=== PATIENT | male | born 1995 | race Caucasian/White ===

== ENCOUNTER 2019-12-02 21:45 | Emergency (ER) | payer BC, OTHER ==
[2019-12-02] MEDS ORDERED: Ondansetron 4 MG/2 ML SDV IVPUSH ONE (23:05)
[2019-12-02] MEDS ORDERED: Sodium Chloride 0.9% 1,000 ML IV ONE (23:05)
[2019-12-03 00:41] LABS: BLOOD UREA NITROGEN,BUN 12 mg/dL (7.0-18.0); CARBON DIOXIDE,CO2 26.4 mmol/L (21.0-32.0); CHLORIDE,CL 102 mmol/L (98-107); GLUCOSE RANDOM 102 mg/dL (74-106); LIPASE 101 U/L (73-393); POTASSIUM,K 4.2 mmol/L (3.5-5.1); SODIUM,NA 138 mmol/L (136-148)
[2019-12-03] MEDS ORDERED: Iopamidol 755 Mg/ML 100 ML Bottle IVPUSH STA (01:17)
--- NOTE | 2019-12-03 02:09 | CT ---
HISTORY: Abdominal pain. Vomiting and diarrhea. TECHNIQUE: CT abdomen pelvis with IV contrast. COMPARISON: None. FINDINGS: Abdomen: No liver lesions. No bile duct dilation. No pancreatic mass or pancreatic duct dilation. No spleen lesions. No adrenal nodules. Kidneys enhance symmetrically. No renal mass. No hydronephrosis. No dilated bowel. Appendix is normal. No free fluid. No lymphadenopathy. Abdominal aorta is normal caliber. Pelvis: No lymphadenopathy. Musculoskeletal: Unremarkable. Lower chest: Unremarkable. IMPRESSION: No acute abnormality in the abdomen and pelvis. Please note that all CT scans at this facility use dose modulation, iterative reconstruction, and/or weight-based dosing when appropriate to reduce radiation dose to as low as reasonably achievable. Dictated by Stiven Cano MD @ Dec 03 2019 2:01AM Signed by Dr. Stiven Cano @ Dec 03 2019 2:08AM
--- NOTE | 2019-12-03 02:17 | EDM.PDOC ---
ED [facility] GENERAL MEDICAL PROBLEM - General Chief Complaint: Gastrointestinal Problem Stated Complaint: STOMACH ISSUES Time Seen by Provider: 12/02/19 22:59 - History of Present Illness INITIAL COMMENTS - FREE TEXT/NARRATIVE: HPI 24-year-old male presents for evaluation of ~3 days of frequent (up to 6X/day) loose watery stools, no blood in stool, no fevers or chills, now with poorly characterized epigastric discomfort. No dysuria or urinary frequency. No chest pain or shortness breath. No drinking unpurified water, no recent travel. No recent antibiotics. Triage note: Patient presents to the ed with c/o abdominal fullness and diarrhea x 3 days. M/S/F/SocHx notable for: please see HPI; remainder reviewed with patient and in chart. ROS: Negative constitutional, eye, cardiovascular, pulmonary, GI, , MSK, skin , neurologic, psychiatric, endocrine unless noted in the HPI. Exam HR 96, RR 18, BP 147/85, T 37.8C, SaO2 97% on room air. Gen: Pleasant, non-toxic appearing, resting comfortably. HEENT: NC, AT, PEERL, EOMI, neck supple with full range of movement. Resp: Clear to auscultation bilaterally, normal work of breathing, no accessory muscle usage. Card: Regular rate and rhythm with no murmurs, rubs, or gallops, extremities warm and well perfused. GI: Non-tender to palpation throughout all quadrants, no focal tenderness at McBurney's point, negative Diaz's sign, non-distended, no rebound or guarding. : No suprapubic tenderness to palpation. MSK: No visible deformities, strength and tone without visually appreciable deficit. Skin: Normal color with no visible lesions. Neuro: alert and oriented 3, no facial asymmetry, vision and hearing WNL. Psych: Mood and affect appropriate. Labs / Imaging (pertinent): WBC 6.96, HB 16.5, sodium 130, potassium 4.2, AST 22, ALT 39, total bilirubin 0.4, alkaline phosphatase 82, lipase 11. CT abdomen/pelvis: no acute abnormality in the abdomen and pelvis. MDM Previous chart, nursing note, and vitals reviewed. A: 24-year-old male presents for evaluation of ~3 days of frequent (up to 6X/day ) loose watery stools, no blood in stool, no fevers or chills, now with poorly characterized epigastric discomfort. DDx: viral enteritis, viral gastroenteritis, bacterial gastroenteritis, food poisoning, C. Difficile, dehydration, electrolyte abnormalities, septicemia/ bacteremia, DKA, acute appendicitis, inflammatory (Crohns vs ulcerative colitis ). Evaluation: no clinically significant acute intrabdominal abnormalities appreciated on imaging, laboratory studies, history, or exam. Suspect a mild enteritis basement history (an absence of collaborating findings on imaging). Patient instructed to use a trial of dental and follow up with primary care physician for repeat evaluation. No genitourinary symptoms. No intrathoracic symptoms. Impression: abdominal pain, diarrhea. - Related Data Allergies Allergy/AdvReac Type Severity Reaction Status Date / Time amoxicillin Allergy Hives Verified 12/02/19 22:19 Home Meds: Home Meds Calcium Carbonate [Tums] 1 tab.chew PO ASDIRECTED PRN 09/07/16 [History] Dicyclomine [Bentyl] 20 mg PO TID PRN #10 tablet 12/03/19 [Rx] Past Medical History HEENT History: Reports: Allergic Rhinitis Cardiovascular History: Reports: None Respiratory History: Reports: None Gastrointestinal History: Reports: GERD Other Gastrointestinal History: heartburn Genitourinary History: Reports: None Musculoskeletal History: Reports: Fracture Other Musculoskeletal History: hx fx leg Neurological History: Reports: None Psychiatric History: Reports: None Endocrine/Metabolic History: Reports: Obesity/BMI 30+ Hematologic History: Reports: None Immunologic History: Reports: None Oncologic (Cancer) History: Reports: None Dermatologic History: Reports: None - Infectious Disease History Infectious Disease History: Reports: Chicken Pox - Past Surgical History Head Surgeries/Procedures: Reports: None Social & Family History - Family History Family Medical History: Noncontributory - Tobacco Use Years of Tobacco use: 2 - Recreational Drug Use Recreational Drug Use: No ED ROS GENERAL - Review of Systems Review Of Systems: See Below ED EXAM, GENERAL - Physical Exam Exam: See Below Course - Vital Signs Last Recorded V/S: Last Vital Signs Temp 37.8 C 12/02/19 22:20 Pulse 96 12/02/19 22:20 Resp 18 12/02/19 22:20 BP 147/85 H 12/02/19 22:20 Pulse Ox 97 12/02/19 22:20 - Orders/Labs/Meds Labs: Laboratory Tests 12/02/19 12/02/19 Range/Units 23:55 23:55 WBC 6.96 (4.0-11.0) K/uL RBC 5.39 (4.50-5.90) M/uL Hgb 16.5 (13.0-17.0) g/dL Hct 46.6 (38.0-50.0) % MCV 86.5 (80.0-98.0) fL MCH 30.6 (27.0-32.0) pg MCHC 35.4 (31.0-37.0) g/dL RDW Std Deviation 36.9 (28.0-62.0) fl RDW Coeff of [place] 12 (11.0-15.0) % Plt Count 287 (150-400) K/uL MPV 10.30 (7.40-12.00) fL Neut % (Auto) 72.3 (48.0-80.0) % Lymph % (Auto) 17.2 (16.0-40.0) % [place] % (Auto) 8.6 (0.0-15.0) % Eos % (Auto) 1.6 (0.0-7.0) % Baso % (Auto) 0.3 (0.0-1.5) % Neut # (Auto) 5.0 (1.4-5.7) K/uL Lymph # (Auto) 1.2 (0.6-2.4) K/uL [place] # (Auto) 0.6 (0.0-0.8) K/uL Eos # (Auto) 0.1 (0.0-0.7) K/uL Baso # (Auto) 0.0 (0.0-0.1) K/uL Nucleated RBC % 0.0 /100WBC Nucleated RBCs # 0 K/uL Sodium 138 (136-148) mmol/L Potassium 4.2 (3.5-5.1) mmol/L Chloride 102 (98-107) mmol/L Carbon Dioxide 26.4 (21.0-32.0) mmol/L BUN 12 (7.0-18.0) mg/dL Creatinine 0.9 (0.8-1.3) mg/dL Est Cr Clr Drug Dosing TNP Estimated GFR (MDRD) > 60.0 ml/min Glucose 102 (74-106) mg/dL Calcium 9.5 (8.5-10.1) mg/dL Total Bilirubin 0.4 (0.2-1.0) mg/dL AST 22 (15-37) IU/L ALT 39 (14-63) IU/L Alkaline Phosphatase 82 (46-116) U/L Total Protein 8.4 H (6.4-8.2) g/dL Albumin 4.5 (3.4-5.0) g/dL Globulin 3.9 (2.6-4.0) g/dL Albumin/Globulin Ratio 1.2 (0.9-1.6) Lipase 101 (73-393) U/L Meds: Medications Discontinued Medications Generic Name Dose Route Start Last Admin Trade Name Freq PRN Reason Stop Dose Admin Sodium Chloride 1,000 mls @ 1,000 mls/hr 12/02/19 23:05 12/02/19 23:56 Normal Saline IV 12/03/19 00:04 1,000 mls/hr .Bolus ONE Administration Iopamidol 100 ml 12/03/19 01:17 12/03/19 01:32 Isovue-370 (76%) IVPUSH 12/03/19 01:18 100 ml ONETIME STA Administration Ondansetron HCl 4 mg 12/02/19 23:05 12/02/19 23:56 Zofran IVPUSH 12/02/19 23:06 4 mg ONETIME ONE Administration Departure - Departure Time of Disposition: 02:16 Disposition: Home, Self-Care 01 Clinical Impression: Gastroenteritis - Discharge Information Prescriptions: Dicyclomine [Bentyl] 20 mg PO TID PRN #10 tablet PRN Reason: Pain Referrals: PCP,None [Primary Care Provider] - Sepsis Event Note - Evaluation Sepsis Screening Result: No Definite Risk - Focused Exam Vital Signs: Vital Signs Temp Pulse Resp BP Pulse Ox 12/02/19 22:20 37.8 C 96 18 147/85 H 97 Date Exam was Performed: 12/03/19 Time Exam was Performed: 02:15
[2019-12-03 02:41] VITALS: BP 122/73; PULSE 75
== END 2019-12-03 02:40 | disposition home or self-care (01) ==
LOC: MW.ED 21:45
DX: K52.9 Noninfective gastroenteritis and colitis, unspecified (principal); F17.200 Nicotine dependence, unspecified, uncomplicated; Z88.0 Allergy status to penicillin
CPT/HCPCS: 36415; 74177; 80053; 83690; 85025; 96361; 96374; 99284; J2405; J7030; Q9967; 99283

== ENCOUNTER 2020-03-24 01:04 | Emergency (ER) | payer BC ==
[2020-03-24] MEDS ORDERED: Lidocaine 1% with EPINEPHrine 1:100,000 20 ML MDV INJECT ONE (01:23)
--- NOTE | 2020-03-24 01:46 | EDM.PDOC ---
ED HPI GENERAL MEDICAL PROBLEM - General Chief Complaint: Skin Complaint Stated Complaint: CYST ON LOWER BACK Time Seen by Provider: 03/24/20 01:11 Source of Information: Reports: Patient History Limitations: Reports: No Limitations - History of Present Illness INITIAL COMMENTS - FREE TEXT/NARRATIVE: 24-year-old male presents to the emergency room with a chief complaint of swelling and pain to the lower patient has pressure at his buttocks crease. Patient states the last day he has been having pain and pressure. States he has had a fever for 1 day also. Onset: Today Duration: Day(s): (2.) Worsens with: Reports: None Context: Reports: Activity Associated Symptoms: Reports: Fever/Chills buttocks Pain Score (Numeric/FACES): 10 - Related Data Allergies Allergy/AdvReac Type Severity Reaction Status Date / Time amoxicillin Allergy Hives Verified 03/24/20 01:20 Home Meds: Home Meds Calcium Carbonate [Tums] 1 tab.chew PO ASDIRECTED PRN 09/07/16 [History] Dicyclomine [Bentyl] 20 mg PO TID PRN #10 tablet 12/03/19 [Rx] Ibuprofen [Motrin] 600 mg PO Q6H PRN #30 tab 03/24/20 [Rx] cephALEXin [Keflex] 500 mg PO Q6HR #40 capsule 03/24/20 [Rx] Past Medical History HEENT History: Reports: Allergic Rhinitis Cardiovascular History: Reports: None Respiratory History: Reports: None Gastrointestinal History: Reports: GERD Other Gastrointestinal History: heartburn Genitourinary History: Reports: None Musculoskeletal History: Reports: Fracture Other Musculoskeletal History: hx fx leg Neurological History: Reports: None Psychiatric History: Reports: None Endocrine/Metabolic History: Reports: Obesity/BMI 30+ Hematologic History: Reports: None Immunologic History: Reports: None Oncologic (Cancer) History: Reports: None Dermatologic History: Reports: None - Infectious Disease History Infectious Disease History: Reports: Chicken Pox - Past Surgical History Head Surgeries/Procedures: Reports: None Social & Family History - Family History Family Medical History: Noncontributory - Tobacco Use Smoking Status *Q: Current Every Day Smoker Years of Tobacco use: 2 Packs/Tins Daily: 0.1 ED ROS GENERAL - Review of Systems Review Of Systems: See Below Constitutional: Reports: No Symptoms HEENT: Reports: No Symptoms Respiratory: Reports: No Symptoms Cardiovascular: Reports: No Symptoms Endocrine: Reports: No Symptoms GI/Abdominal: Reports: No Symptoms : Reports: No Symptoms Musculoskeletal: Reports: No Symptoms Skin: Reports: Lumps (Swelling to the area in his buttocks) Neurological: Reports: No Symptoms Psychiatric: Reports: No Symptoms Hematologic/Lymphatic: Reports: No Symptoms Immunologic: Reports: No Symptoms ED EXAM, SKIN/RASH Exam: See Below Exam Limited By: No Limitations General Appearance: Alert, WD/WN, Mild Distress Eye Exam: Bilateral Eye: Normal Fundi, Normal Inspection Ears: Normal External Exam, Normal Canal Nose: Normal Inspection, Normal Mucosa Throat/Mouth: Normal Inspection, Normal Lips Head: Atraumatic, Normocephalic Neck: Normal Inspection, Supple Respiratory/Chest: No Respiratory Distress Cardiovascular: Normal Peripheral Pulses, Regular Rate, Rhythm GI/Abdominal: Normal Bowel Sounds, Soft, Non-Tender (Male) Exam: No Hernia, Normal Inspection, Normal Prostate Back Exam: Normal Inspection, Full Range of Motion Extremities: Normal Inspection, Normal Range of Motion Neurological: Alert, Oriented, CN II-XII Intact Psychiatric: Normal Affect, Normal Mood Skin: Warm, Increased Warmth, Other (Patient has a pilonidal abscess to the upper buttocks/very tender and indurated) Location, Skin: Other (HE has a pilonidal cyst. Approximately 4 cm with a long and very tender) Associated features: Warmth, Tenderness, Swelling, Induration, Inflammation Lymphatic: No Adenopathy ED SKIN PROCEDURES - Additional/Other Procedure(s) Other (Free Text) Procedure(s): Patient had a pilonidal abscess Area cleaned with Betadine. Lidocaine 1% with epi x10 cc anesthesia I then aspirated approximately 8 cc of purulent foul-smelling pus. A 2 cm incision was performed with opening with a blunt forcep. 1 inch packing was applied to the area. Patient will be placed on antibiotics and instructed to follow-up with surgery placed on referral list. Course - Vital Signs Text/Narrative:: He had an I&D performed of his pilonidal cyst. Good results The patient has tolerated the procedure well Last Recorded V/S: Last Vital Signs Temp 97.2 F 03/24/20 01:15 Pulse 88 03/24/20 01:15 Resp 16 03/24/20 01:15 BP 147/83 H 03/24/20 01:15 Pulse Ox 96 03/24/20 01:15 - Orders/Labs/Meds Meds: Medications Discontinued Medications Generic Name Dose Route Start Last Admin Trade Name Tien PRN Reason Stop Dose Admin Cephalexin 500 mg 03/24/20 01:53 Keflex PO 03/24/20 01:54 ONETIME ONE Lidocaine/Epinephrine 20 ml 03/24/20 01:23 03/24/20 01:50 Xylocaine 1% With Epinephrine 1:100,000 INJECT 03/24/20 01:24 20 ml ONETIME ONE Administration Departure - Departure Time of Disposition: 01:59 Disposition: Home, Self-Care 01 Condition: Good Clinical Impression: Abscess, Pilonidal cyst with abscess - Discharge Information Prescriptions: cephALEXin [Keflex] 500 mg PO Q6HR #40 capsule Ibuprofen [Motrin] 600 mg PO Q6H PRN #30 tab PRN Reason: Pain (Moderate 4-6) Instructions: Pilonidal Cyst Drainage, Skin Abscess, [id number] Referrals: PCP,None [Primary Care Provider] - Forms: ED Department Discharge Additional Instructions: . Follow-up with the surgery clinic II. Take medication as prescribed. Sepsis Event Note - Evaluation Sepsis Screening Result: No Definite Risk - Focused Exam Vital Signs: Vital Signs Temp Pulse Resp BP Pulse Ox 03/24/20 01:15 97.2 F 88 16 147/83 H 96 Date Exam was Performed: 03/24/20 Time Exam was Performed: 01:59
[2020-03-24] MEDS ORDERED: Cephalexin 500 MG Cap PO ONE (01:53)
[2020-03-24 02:03] VITALS: BP 138/76; PULSE 87
== END 2020-03-24 02:15 | disposition home or self-care (01) ==
LOC: MW.ED 01:04
DX: L05.01 Pilonidal cyst with abscess (principal); E66.9 Obesity, unspecified; F17.210 Nicotine dependence, cigarettes, uncomplicated; Z68.32 Body mass index [BMI] 32.0-32.9, adult; Z88.1 Allergy status to other antibiotic agents; Z79.899 Other long term (current) drug therapy
CPT/HCPCS: 10080; 87070; 87077; 87186; 99283; A9270; 99282

== ENCOUNTER 2020-10-21 19:59 | Emergency (ER) | payer BC ==
[2020-10-21] MEDS ORDERED: Acetaminophen 500 MG Tab PO ONE (20:36)
[2020-10-21] MEDS ORDERED: Ketorolac 30 MG/ML SDV IM ONE (20:37)
--- NOTE | 2020-10-21 20:49 | EDM.PDOC ---
ED HPI GENERAL MEDICAL PROBLEM - General Chief Complaint: Fever Stated Complaint: FEVER Time Seen by Provider: 10/21/20 20:03 Source of Information: Reports: Patient History Limitations: Reports: No Limitations - History of Present Illness INITIAL COMMENTS - FREE TEXT/NARRATIVE: 25-year-old male with history of strep pharyngitis presents with sore throat. He noted symptoms started today, associated with generalized malaise, nausea, vomiting, fever, headache, diffuse myalgia, dry cough, chest tightness, shortness of breath, sweats. He denies anosmia, diarrhea, neck stiffness, rash, abdominal pain. He took 400 mg of ibuprofen at 5 PM with no relief. Headache is diffuse, sharp, nonradiating, constant, no alleviating or exacerbating factors. He denies neck stiffness. ROS: A 10-point review of systems, other than pertinent positives and negatives as stated per HPI, is otherwise negative Past medical history: No additional pertinent history Past Surgical history: No additional pertinent history Social history: No additional pertinent history Family history: No additional pertinent history PHYSICAL EXAM General: AOx4, GCS = 15, mild distress HEENT: dry mucous membrane, bilateral tonsillar swelling with no erythema or exudates. Positive cervical lymphadenopathy. Neck: supple, no meningismus, no Kernig or Brudzinski, able to shake his head left to right with no discomfort. Cardiac: S1S2 tachycardia Respiratory: CTAB, no crackles or rales, no wheezing Abdomen: Soft, nontender, no rebound or guarding, nondistended, no pulsatile mass. Back: nontender Musculoskeletal: NVI distally, no deformity Neuro: No focal deficits, CN 2 - 12 WNL. Throat Pain Score (Numeric/FACES): 6 - Related Data Allergies Allergy/AdvReac Type Severity Reaction Status Date / Time amoxicillin Allergy Hives Verified 10/21/20 20:19 Home Meds: Home Meds Ibuprofen [Motrin] 600 mg PO Q6H PRN #30 tab 03/24/20 [Rx] Naproxen [EC-Naproxen] 500 mg PO BID #10 tablet. 10/21/20 [Rx] cephALEXin [Keflex] 500 mg PO Q8H #30 cap 10/21/20 [Rx] Past Medical History HEENT History: Reports: Allergic Rhinitis Cardiovascular History: Reports: None Respiratory History: Reports: None Gastrointestinal History: Reports: GERD Other Gastrointestinal History: heartburn Genitourinary History: Reports: None Musculoskeletal History: Reports: Fracture Other Musculoskeletal History: hx fx leg Neurological History: Reports: None Psychiatric History: Reports: None Endocrine/Metabolic History: Reports: Obesity/BMI 30+ Hematologic History: Reports: None Immunologic History: Reports: None Oncologic (Cancer) History: Reports: None Dermatologic History: Reports: None - Infectious Disease History Infectious Disease History: Reports: Chicken Pox - Past Surgical History Head Surgeries/Procedures: Reports: None Social & Family History - Family History Family Medical History: No Pertinent Family History - Recreational Drug Use Recreational Drug Use: No ED ROS GENERAL - Review of Systems Review Of Systems: See Below (see dictation) ED EXAM, GENERAL - Physical Exam Exam: See Below (see dictation) Course - Vital Signs Last Recorded V/S: Last Vital Signs Temp 103.0 F H 10/21/20 20:13 Pulse 111 H 10/21/20 20:13 Resp 20 10/21/20 20:13 BP 110/62 10/21/20 20:13 Pulse Ox 95 10/21/20 20:13 - Orders/Labs/Meds Orders: Active Orders 24 hr Category Date Time Status CORONAVIRUS COVID-19 PCR PHL Stat Lab 10/21/20 20:26 Ordered Isolation [COMM] Routine Oth 10/21/20 20:27 Active Labs: Laboratory Tests 10/21/20 Range/Units 20:31 SARS CoV-2 RNA Rapid MALLY NEGATIVE (NEGATIVE) Meds: Medications Discontinued Medications Generic Name Dose Route Start Last Admin Trade Name Bowenq PRN Reason Stop Dose Admin Acetaminophen 1,000 mg 10/21/20 20:36 10/21/20 20:49 Tylenol Extra Strength PO 10/21/20 20:37 1,000 mg ONETIME ONE Administration Ketorolac Tromethamine 30 mg 10/21/20 20:37 10/21/20 20:44 Toradol IM 10/21/20 20:38 30 mg ONETIME ONE Administration - Re-Assessments/Exams Free Text/Narrative Re-Assessment/Exam: 10/21/20 22:06 After getting medicated in the ER, his symptoms improved and he is currently stable for discharge. I performed a repeat exam and did not appreciate new abnormal findings. Patient exhibits normal vital signs and has a normal gait on road test. I advised the patient to return to the ER for reevaluation if symptoms worsened, including fever, worsening pain, or any other worrisome symptoms. I instructed the patient to follow up with their PCP within 2-3 days. MEDICAL DECISION MAKING: I reviewed the patients past medical records, lab and radiographic findings. I discussed the case with the patient. My differential diagnosis included: Covid, influenza, strep pharyngitis. I do not suspect m eningitis, his neck was supple, and he was able to shake his head left and right. His Centor score = 3, strep was positive. Covid and influenza was performed and negative. He was given Tylenol here. His symptoms are stable for outpatient follow-up. Departure - Departure Time of Disposition: 22:07 Disposition: Home, Self-Care 01 Condition: Good Clinical Impression: Strep pharyngitis - Discharge Information *PRESCRIPTION DRUG MONITORING PROGRAM REVIEWED*: Not Applicable *COPY OF PRESCRIPTION DRUG MONITORING REPORT IN PATIENT SAMANTHA: Not Applicable Prescriptions: Naproxen [EC-Naproxen] 500 mg PO BID #10 tablet. cephALEXin [Keflex] 500 mg PO Q8H #30 cap Instructions: Strep Throat, Adult Referrals: PCP,None [Primary Care Provider] - Forms: ED Department Discharge Additional Instructions: The need for follow-up, as well as the timing and circumstances, are variable depending upon the specifics of your emergency department visit. If you don't have a primary care physician on staff, we will provide you with a referral. We always advise you to contact your personal physician following an emergency department visit to inform them of the circumstance of the visit and for follow-up with them and/or the need for any referrals to a consulting specialist. The emergency department will also refer you to a specialist when appropriate. This referral assures that you have the opportunity for follow-up care with a specialist. All of these measure are taken in an effort to provide you with optimal care, which includes your follow-up. Under all circumstances we always encourage you to contact your private physician who remains a resource for coordinating your care. When calling for follow-up care, please make the office aware that this follow-up is from your recent emergency room visit. If for any reason you are refused follow-up, please contact the [facility] Emergency Department at and asked to speak to the emergency department charge nurse. If you do not have a primary care doctor, please follow up with the clinics below within 3-5 days. [facility] - Primary [facility] [address] [place] [address] [place] [address] Sepsis Event Note (ED) - Evaluation Sepsis Screening Result: Possible Sepsis Risk - Focused Exam Vital Signs: Vital Signs Temp Pulse Resp BP Pulse Ox 10/21/20 20:13 103.0 F H 111 H 20 110/62 95 - My Orders Last 24 Hours: My Active Orders 10/21/20 20:26 CORONAVIRUS COVID-19 PCR PHL Stat 10/21/20 20:27 Isolation [COMM] Routine - Assessment/Plan Last 24 Hours: My Active Orders 10/21/20 20:26 CORONAVIRUS COVID-19 PCR PHL Stat 10/21/20 20:27 Isolation [COMM] Routine
--- NOTE | 2020-10-21 20:54 | CR ---
INDICATION: Cough. COMPARISON: 07/21/2016. TECHNIQUE: Single portable AP view of the chest. FINDINGS: The lungs are adequately inflated. No focal consolidation, pneumothorax or effusion. Cardiomediastinal silhouette is unremarkable for an AP view. There are no acute osseous findings. IMPRESSION: Negative AP view of the chest. Dictated by Steven Townsend MD @ 10/21/2020 8:52:31 PM Dictated by: Steven Townsend MD @ 10/21/2020 20:52:46 (Electronically Signed)
[2020-10-21] MEDS ORDERED: Dexamethasone 10 MG/ML SDV IM ONE (22:09)
[2020-10-21 23:30] VITALS: BP 119/55; PULSE 87
== END 2020-10-21 22:39 | disposition home or self-care (01) ==
LOC: MW.ED 19:59
DX: J02.0 Streptococcal pharyngitis (principal); Z88.1 Allergy status to other antibiotic agents; E66.9 Obesity, unspecified; Z68.31 Body mass index [BMI] 31.0-31.9, adult; Z20.828 Contact with and (suspected) exposure to other viral communicable diseases
CPT/HCPCS: 71045; 87635; 87804; 87880; 96372; 99284; A9270; J1100; J1885; 99283; U0002

== ENCOUNTER 2022-03-01 11:12 | Day surgery (SDC) | payer BC ==
[~2022-03-01 11:12] MED LIST: Lactated Ringers 1,000 ML IV SCH
[2022-03-01] MEDS ORDERED: Propofol 200 MG/20 ML SDV ONE ×2 (12:23→13:38)
[2022-03-01] MEDS ORDERED: Lidocaine 1% 5 ML VIAL ONE (12:23)
[2022-03-01] MEDS ORDERED: fentaNYL 100 MCG/2 ML SDV ONE (12:24)
[2022-03-01] MEDS ORDERED: Lactated Ringers 1,000 ML IV SCH (14:15)
[2022-03-01 14:56] VITALS: BP 117/72; PULSE 77
== END 2022-03-01 14:50 | disposition home or self-care (01) ==
LOC: MW.SDS 11:12
PROVIDERS: ATTEND Surgery
DX: K52.9 Noninfective gastroenteritis and colitis, unspecified (principal); K21.9 Gastro-esophageal reflux disease without esophagitis; Z88.0 Allergy status to penicillin; Z98.890 Other specified postprocedural states; Z87.891 Personal history of nicotine dependence
CPT/HCPCS: 45380; J2704; J3010; J7120; 00811

== ENCOUNTER 2022-07-17 15:02 | Emergency (ER) | payer BC ==
[2022-07-17 17:49] LABS: POTASSIUM,K 4.1 mmol/L (3.5-5.1)
[2022-07-17 18:33] VITALS: BP 122/72; PULSE 72
== END 2022-07-17 18:32 | disposition home or self-care (01) ==
LOC: MW.ED 15:02
DX: H60.502 Unspecified acute noninfective otitis externa, left ear (principal); N39.9 Disorder of urinary system, unspecified; T36.3X5A Adverse effect of macrolides, initial encounter; Z88.0 Allergy status to penicillin
CPT/HCPCS: 36415; 80053; 81001; 85025; 87086; 99283

== ENCOUNTER 2024-06-15 11:33 | Emergency (ER) | payer BC ==
[2024-06-15] MEDS ORDERED: Aspirin 81 MG Tab.Chew ONE ×2 (11:47→12:25)
[2024-06-15] MEDS ORDERED: Lidocaine 2% Viscous Solution 15 ML UD ONE ×2 (12:25)
[2024-06-15] MEDS ORDERED: Aluminum Hydroxide/Magnesium Hydroxide/Simethicone XS Susp 30 ML Cup ONE ×2 (12:25)
[2024-06-16 09:03] LABS: INR 1.1 (0.86-1.11); PTT,PARTIAL THROMBOPLSTIN TIME 28.7 SEC (23.9-30.7)
[2024-06-16 09:05] LABS: BASOPHILS ABSOLUTE AUTO 0.03 K/uL (0.00-0.20); BASOPHILS PERCENT AUTO 0.4 % (0.0-1.0); EOSINOPHILS ABSOLUTE AUTO 0.07 K/uL (0.00-0.45); EOSINOPHILS PERCENT AUTO 0.9 % (0.0-6.0); HEMOGLOBIN 16.2 g/dL (14.0-18.0); IMMATURE GRAN ABSOLUTE AUTO 0.02 K/uL (0.00-0.05); IMMATURE GRAN PERCENT AUTO 0.3 % (0.0-0.4); LYMPHOCYTES ABSOLUTE AUTO 1.34 K/uL (1.00-4.80); LYMPHOCYTES PERCENT AUTO 17.2 % (24.0-44.0); MEAN CORPUSCULAR HEMOGLOBIN 30.9 pg (28.0-32.0); MEAN CORPUSCULAR HGB CONC 35.2 g/dL (32.0-36.0); MEAN CORPUSCULAR VOLUME 87.8 fL (83.0-99.0); MEAN PLATELET VOLUME 9.8 fL (9.4-12.4); MONOCYTES ABSOLUTE AUTO 0.43 K/uL (0.00-0.80); MONOCYTES PERCENT AUTO 5.5 % (0.0-8.0); NEUTROPHILS ABSOLUTE AUTO 5.92 K/uL (1.80-7.70); NEUTROPHILS PERCENT AUTO 75.7 % (41.0-71.0); PLATELET COUNT,PLT 278 K/uL (150-400); RED BLOOD CELL COUNT 5.24 M/uL (4.52-5.90); WHITE BLOOD CELL COUNT,WBC 7.81 K/uL (3.9-11.3)
[2024-06-16 09:41] LABS: CORONAVIRUS COVID-19 NAA NEGATIVE (NEGATIVE); INFLUENZA A NAA NEGATIVE (NEGATIVE); INFLUENZA B NAA NEGATIVE (NEGATIVE); RESPIRATORY SYNCYTIAL VIR NAA NEGATIVE (NEGATIVE)
[2024-06-16 13:04] LABS: A/G RATIO 1.3 (0.9-1.6); ALANINE AMINOTRANSFERASE,ALT 39 IU/L (14-63); ALBUMIN 4.4 g/dL (3.4-5.0); ALKALINE PHOSPHATASE 69 U/L (46-116); ASPARTATE AMNIOTRANSFERASE,AST 24 IU/L (15-37); BILIRUBIN TOTAL 1.1 mg/dL (0.2-1.0); BLOOD UREA NITROGEN,BUN 12 mg/dL (7.0-18.0); CALCIUM 9.4 mg/dL (8.5-10.1); CARBON DIOXIDE,CO2 24.3 mmol/L (21.0-32.0); CHLORIDE,CL 100 mmol/L (98-107); GLUCOSE RANDOM 100 mg/dL (74-106); LIPASE 23 U/L (16-77); POTASSIUM,K 3.7 mmol/L (3.5-5.1); PROTEIN TOTAL,TP 7.7 g/dL (6.4-8.2); SODIUM,NA 136 mmol/L (136-148)
[2024-06-16 13:21] LABS: ESTIMATED GFR 104 mL/min (>60)
[2024-06-16 15:49] VITALS: BP 140/80; PULSE 79
== END 2024-06-15 16:55 | disposition home or self-care (01) ==
LOC: MW.ED 11:33
DX: R07.2 Precordial pain (principal); Z86.16 Personal history of COVID-19; Z88.0 Allergy status to penicillin
CPT/HCPCS: 0241U; 36415; 71046; 80053; 83690; 84484; 85025; 85610; 85730; 93005; 93246; 99285; A9270; 93010; 99283

== ENCOUNTER 2025-03-13 06:17 | Day surgery (SDC) | payer BC ==
[~2025-03-13 06:17] MED LIST changes: +Acetaminophen 500 MG Tab PO ONE; -Lactated Ringers 1,000 ML IV SCH; +ceFAZolin 2 GM in Sodium Chloride 0.9% 50 ML IV ONE
[2025-03-13] MEDS: Pregabalin 75 MG Cap PO SCH (06:30)
[2025-03-13] MEDS: Lactated Ringers 1,000 ML IV SCH (06:50)
[2025-03-13] MEDS ORDERED: Bupivacaine 0.5% 30 ML SDV ONE (07:10)
[2025-03-13] MEDS ORDERED: fentaNYL 100 MCG/2 ML SDV ONE (07:28)
[2025-03-13] MEDS ORDERED: Rocuronium Bromide 50 MG/5 ML Syringe ONE (07:28)
[2025-03-13] MEDS ORDERED: Lidocaine 1% 5 ML VIAL ONE (07:28)
[2025-03-13] MEDS ORDERED: Midazolam 1 MG/ML 2 ML SDV ONE (07:28)
[2025-03-13] MEDS ORDERED: Propofol 200 MG/20 ML SDV ONE (07:28)
[2025-03-13] MEDS ORDERED: Dexamethasone 4 MG/ML 5 ML MDV ONE (07:28)
[2025-03-13] MEDS ORDERED: Ondansetron 4 MG/2 ML SDV ONE (07:28)
[2025-03-13] MEDS ORDERED: fentaNYL 50 MCG/ML SDV IVPUSH PRN (08:02)
[2025-03-13] MEDS ORDERED: Ondansetron 4 MG/2 ML SDV IVPUSH PRN (08:02)
[2025-03-13] MEDS ORDERED: Morphine 2 MG/ML SYRINGE IVPUSH PRN (08:02)
[2025-03-13] MEDS ORDERED: Metoclopramide 10 MG/2 ML SDV IVPUSH PRN (08:02)
[2025-03-13] MEDS ORDERED: Albuterol 0.083% 2.5 MG/3 ML Neb Soln NEB PRN (08:02)
[2025-03-13] MEDS ORDERED: Naloxone 0.4 MG/ML SDV IVPUSH PRN (08:02)
[2025-03-13] MEDS ORDERED: Phenylephrine HCl In 0.9% NaCl 1 MG/10 ML Syringe IVPUSH PRN (08:02)
[2025-03-13] MEDS ORDERED: ceFAZolin 2 GM Vial ONE (08:41)
[2025-03-13] MEDS ORDERED: Sugammadex Sodium 200 MG/2 ML VIAL IV ONE (09:43)
[2025-03-13] MEDS: HYDROmorphone 1 MG/ML Syringe IVPUSH PRN (10:14)
[2025-03-13 10:49] VITALS: BP 136/77; PULSE 65
== END 2025-03-13 11:29 | disposition home or self-care (01) ==
LOC: MW.SDS 06:17
PROVIDERS: ATTEND Surgery
DX: L05.91 Pilonidal cyst without abscess (principal); I10 Essential (primary) hypertension; K21.9 Gastro-esophageal reflux disease without esophagitis; Z87.891 Personal history of nicotine dependence; Z79.899 Other long term (current) drug therapy
CPT/HCPCS: 11772; 12032; A9270; J0665; J0690; J1100; J1171; J2003; J2250; J2704; J3010; J7120; 00300; J2405; J3490

== ENCOUNTER 2025-05-24 08:52 | Day surgery (SDC) | payer BC ==
[2025-05-24] MEDS: Lactated Ringers 1,000 ML IV SCH (09:20)
[2025-05-24] MEDS ORDERED: Propofol 200 MG/20 ML SDV ONE (10:46)
[2025-05-24] MEDS ORDERED: Lidocaine 2% 5 ML SDV ONE (10:46)
[2025-05-24 12:17] VITALS: PULSE 54
[2025-05-24 12:45] VITALS: BP 127/65
== END 2025-05-24 12:27 | disposition home or self-care (01) ==
LOC: MW.SDS 08:52
PROVIDERS: ATTEND Surgery
DX: K21.00 Gastro-esophageal reflux disease with esophagitis, without bleeding (principal); K22.70 Barrett's esophagus without dysplasia; K44.9 Diaphragmatic hernia without obstruction or gangrene; Z79.899 Other long term (current) drug therapy
CPT/HCPCS: 43239; J2003; J2704; J7120; 00731